=== PATIENT | female | born 1985 | race Caucasian/White ===

== ENCOUNTER 2023-11-24 07:46 | Inpatient (IN) ==
[2023-11-24] MEDS ORDERED: LIDOCAINE 1% LOCAL 20 ML VIAL INFIL PRN (08:08)
[2023-11-24] MEDS: LACTATED RINGER'S 1,000 ML IV PRN (08:23)
[2023-11-24 08:51] LABS: Hemoglobin 12.3 g/dl (12.0-16.0); Mean Corpuscular Hemoglobin 27.5 pg (25.0-34.0); Mean Corpuscular Hgb Conc 33.2 g/dL (32.0-36.0); Mean Corpuscular Volume 82.8 fL (80.0-100.0); Mean Platelet Volume 10.2 fL (9.4-12.4); Platelet Count 265 K/uL (130-400); RDW Standard Deviation 45.1 fL (36.4-46.3); Red Blood Count 4.47 M/uL (4.20-5.40); White Blood Count 7.84 K/ul (4.8-10.8)
[2023-11-24] MEDS: OXYTOCIN 30 UNITS/NSS 30 UNITS/500 ML BAG IV PRN ×2 (09:00→18:13)
--- NOTE | 2023-11-24 09:14 | History & Physical Report ---
Date of Service November 24, 2023 Assessment & Plan (1) Gestational diabetes mellitus (GDM) affecting : Plan: IUP at 40-2/7 weeks now presents for induction of labor because of postterm . We will begin Pitocin induction. Check blood sugars every 3 hours because of the history of GDM. Epidural when requested. Anticipate vaginal . Admission and Anticipated Discharge Date Admission Date: November 24, 2023 History of Present Illness Primary Care Provider: Cari Shell MD Patient is a 38-year-old 2 para 1-0-0-1 female EDC of 11/22/2023 who presents for postterm induction at 40-2/7 weeks. has been complicated by AMA status and diet-controlled GDM. testing has been reassuring. GBS is negative. Allergies Allergy/AdvReac Type Severity Reaction Status Date / Time No Known Allergies Allergy Verified 11/23/23 10:06 Home Medications Medication Instructions Recorded Confirmed Type vit 168-iron 27 mg-folic 1 cap PO 04/06/23 11/23/23 History acid 800 mcg-omega3 235 mg capsule (One-A-Day -1) acetone (urine) test (Ketone Urine #50 ea 07/02/23 11/23/23 Rx Test strips) blood sugar diagnostic (Accu-Chek #150 ea 07/02/23 11/23/23 Rx Kim Plus test strips) blood-glucose meter #1 ea 07/02/23 11/23/23 Rx lancets (Accu-Chek Softclix #150 ea 07/02/23 11/23/23 Rx Lancets) Patient History Medical History Hx of migraines during high school years. no recent migraines and has not needed any medications for this recently History of chicken pox Depression Surgical History S/P tonsillectomy S/P wrist surgery S/P ACL reconstruction S/P wisdom tooth extraction S/P cholecystectomy Family History Father Diabetes Mother Hypertension Diabetes Grandmother (Maternal) Stroke Hypertension Social History Smoking Status: Never smoker Second Hand Exposure: No; Do You Dip or Chew Tobacco: No; Hx Alcohol Use: No Hx Substance Use: No Preferred Language: Luxembourgish Communication Ability: Effective Visual Impairment: No Limitations Hearing Ability: Normal Vapor Coater Required: No Beliefs That Will Affect Care: None marital status: marital status details: Jareth William (40) [phone] Current Living Situation: Spouse and Family Current Living Situation Comment: Jareth and son Prasanth and 2 dogs current occupational status: employed 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 Other Information That Helps Us Care for You: No Feels Safe at Home: Yes Safety Concerns: Feels Safe At This Time Childhood Exposure to Second-Hand Smoke: Yes Diet: regular Dental Care, Regularly: Yes Physical Activity Frequency: 1-2 Times per Week Seatbelt Use: always Sunscreen Use: Yes Assistive Devices: Contacts and Glasses Review of Systems All systems reviewed & are unremarkable except as noted in HPI & below Physical Exam Constitutional: WD/WN, vitals as above Psychiatric: A+Ox3, euthymic affect Genitourinary: OB Exam Abdomen: + vertex, + estimated weight (7-8 pounds) and + irregular contractions Manual OB Exam: + cervical dilation 3 cm, + cervical effacement 70% and + station -2 OB Exam Monitor Tracing: + external FHT monitor used, + external uterine monitor used, + category I and + normal FHT variability Results & Data Vital Signs (Past 12 Hours) Vital Signs Temp Pulse Resp BP 11/24/23 08:26 97.7 F 18 11/24/23 07:57 60 113/65 Coding Level of Care Code None Diagnoses Gestational diabetes mellitus (GDM) affecting O24.419
[2023-11-24] MEDS ORDERED: NALOXONE HCL 0.4 MG/1 ML VIAL/CARP IV PRN (13:10)
[2023-11-24] MEDS ORDERED: diphenhydrAMINE 50 MG/ML VIAL IV PRN (13:10)
[2023-11-24] MEDS ORDERED: NALBUPHINE HCL 5 MG in SYRINGE 0 ML IV PRN (13:10)
[2023-11-24] MEDS ORDERED: ePHEDrine sulfate 50 MG/ML AMP IV PRN (13:10)
[2023-11-24] MEDS ORDERED: BUPIVACAINE 0.25% PF 30 ML VIAL EPI PRN (13:10)
[2023-11-24] MEDS ORDERED: SODIUM CHLORIDE 0.9% PF INJ 10 ML VIAL EPI PRN (13:10)
[2023-11-24] MEDS ORDERED: ROPIVACAINE 0.5% PF 5 MG/ML 20 ML VIAL EPI PRN (13:10)
[2023-11-24] MEDS ORDERED: LIDOCAINE 2% MPF LOCAL 5 ML VIAL EPI PRN (13:10)
[2023-11-24] MEDS ORDERED: NALOXONE HCL 1 MG in SODIUM CHLORIDE 0.9% 1,000 ML IV PRN (13:10)
[2023-11-24] MEDS ORDERED: fentANYL 2 MCG/ML BUPIVacaine 0.125%-NSS 100ML BAG EPI PRN (13:10)
[2023-11-24] MEDS ORDERED: fentaNYL citrate PF 100 MCG/2 ML VIAL EPI PRN (13:10)
--- NOTE | 2023-11-24 13:15 | Anesthesiology Consultation ---
Date of Service November 24, 2023 Assessment & Plan Chart Review Chart Review: Patient NOT seen in Pre Admission Testing and Acceptable Risk for Labor Epidural Consults Requested none ASA ASA2 Proposed Anesthesia Anesthesia Type: Labor Epidural Risk / Benefits Reviewed With: PT / POA / Parent / Guardian, Accepts Plan and Informed Consent Obtained History Height/Weight Height: 5 ft 3 in Weight: 92.079 kg Allergies Allergy/AdvReac Type Severity Reaction Status Date / Time No Known Allergies Allergy Verified 11/23/23 10:06 Medications Home Medications Medication Instructions Recorded Confirmed Last Taken vit 168-iron 27 mg-folic 1 cap PO 04/06/23 11/23/23 11/23/23 08:00 acid 800 mcg-omega3 235 mg capsule (One-A-Day -1) acetone (urine) test (Ketone Urine #50 ea 07/02/23 11/23/23 Unknown Test strips) blood sugar diagnostic (Accu-Chek #150 ea 07/02/23 11/23/23 Unknown Kim Plus test strips) blood-glucose meter #1 ea 07/02/23 11/23/23 Unknown lancets (Accu-Chek Softclix #150 ea 07/02/23 11/23/23 Unknown Lancets) Active Medications Generic Name Dose Route Start Last Admin Trade Name Freq PRN Reason Stop Dose Admin Lactated Ringer's 1,000 mls @ 125 mls/hr 11/24/23 08:08 11/24/23 13:30 Lr IV 11/26/23 08:07 125 mls/hr .Q8H PRN Infusion L&D Protocol Protocol Oxytocin 30 units in 500 mls @ 14 mls/hr 11/24/23 08:32 11/24/23 12:00 Pitocin 30 Units/Nss IV 11/26/23 08:31 0.84 units/hr .Q24H PRN 14 mls/hr Labor Induction/Augmentation Titration Protocol 0.84 UNITS/HR NPO Date Last Intake of Fluids: 11/24/23 Time Last Intake of Fluids: 13:00 Date Last Intake of Solids: 11/24/23 Time Last Intake of Solids: 07:00 Past Medical History Medical History Hx of migraines during high school years. no recent migraines and has not needed any medications for this recently History of chicken pox Depression Exercise / Class Metabolic Activity 1 > 8 Run/Swim/Ski/Tennis Past Family History Family History Father Diabetes Mother Hypertension Diabetes Grandmother (Maternal) Stroke Hypertension Past Surgical History Surgical History S/P tonsillectomy S/P wrist surgery S/P ACL reconstruction S/P wisdom tooth extraction S/P cholecystectomy Past Anesthesia History No Hx of Anesthesia Complications and No Family Hx of Anesthesia Complications History of PONV No Hx of Motion Sickness and History of PONV Social History Smoking Status: Never smoker Do You Dip or Chew Tobacco: No Hx Alcohol Use: No Hx Substance Use: No Review of Systems ROS Unobtainable: All systems reviewed & are unremarkable except as noted in HPI & below Physical Exam Vital Signs Last Vital Signs Temp 36.8 C 11/24/23 11:09 Pulse 59 L 11/24/23 12:33 Resp 18 11/24/23 12:30 BP 123/77 11/24/23 12:33 ENMT Mouth: no TMJ abnormality Thyromental Distance: > or= 3.5 Finger Breadths Mallampati Class: II Neck normal visual inspection and trachea midline; neck extension not limited Respiratory normal respiratory effort Auscultation: lungs clear to auscultation bilaterally Cardiovascular Rate/Rhythm: regular rate and regular rhythm Heart Sounds: no murmur Musculoskeletal Spine: normal cervical ROM Extremities: full ROM of extremities Neurologic moves all extremities Psychiatric Orientation: alert and oriented x 3 Testing Laboratory Results 11/24/23 08:28 Blood Type O Positive 11/24/23 08:28 Antibody Screen NEGATIVE 11/24/23 08:28 11/24/23 11/24/23 11:08 08:01 POC Glucose 89 91
[2023-11-24] MEDS: fentANYL 2 MCG/ML BUPIVacaine 0.125%-NSS 100ML BAG ONE (13:29)
[2023-11-24] MEDS: LIDOCAINE 2%/EPINEPHRINE 1:200,000 20 ML PF ONE (13:30)
[2023-11-24] MEDS: BUPIVACAINE 0.25% PF 30 ML VIAL ONE (13:30)
[2023-11-24] MEDS: fentaNYL citrate PF 100 MCG/2 ML VIAL ONE (13:30)
[2023-11-24] MEDS: BUPIVACAINE 0.25% PF 30 ML VIAL EPI STA (13:37)
[2023-11-24] MEDS: SODIUM CHLORIDE 0.9% PF INJ 10 ML VIAL ONE (13:37)
[2023-11-24] MEDS: fentaNYL citrate PF 100 MCG/2 ML VIAL EPI STA (13:37)
[2023-11-24] MEDS: LIDOCAINE 2%/EPINEPHRINE 1:200,000 20 ML PF EPI STA (13:37)
[2023-11-24] MEDS: ONDANSETRON INJ 2 MG/ML 2 ML VIAL IV STA (15:44)
[2023-11-24] MEDS ORDERED: ACETAMINOPHEN 325 MG TAB PO PRN (18:36)
[2023-11-24] MEDS ORDERED: oxyCODONE/ACETAMINOPHEN 5mg/325mg TAB PO PRN (18:36)
[2023-11-24] MEDS ORDERED: bisacodyL 10 MG SUPP PR PRN (18:36)
[2023-11-24] MEDS ORDERED: OXYTOCIN 30 UNITS/NSS 30 UNITS/500 ML BAG IV PRN (18:36)
[2023-11-24] MEDS ORDERED: HYDROCORTISONE ACETATE 25 MG SUPP PR PRN (18:36)
--- NOTE | 2023-11-24 18:40 | Delivery Summary ---
Vaginal Delivery Summary Date of Service November 24, 2023 Vaginal Delivery Summary and 2nd Degree LAC Patient is a 38-year-old 2 para 1-0-0-1 female who presents for postterm induction at 40-2/7 weeks. Pitocin induction of labor was begun per protocol. She requested epidural analgesia. Membranes were ruptured for clear fluid. She progressed to full dilation with the urge to push. She pushed effectively over intact perineum for delivery of a viable female infant. There was a loose nuchal cord which reduced as the rest the infant delivered. She was placed on the mother's abdomen for further attention and drying. After stimulation she was then vigorous crying and moving all 4 limbs. Cord was clamped and cut 1 minute after delivery. After cord bloods obtained, the placenta was expressed intact with a three-vessel cord. A second-degree perineal laceration was repaired with 3-0 chromic in the usual fashion. bleeding was controlled with dilute Pitocin and fundal massage. QBL was 474 cc. Mother and were doing well after delivery. [facility] [place] Charge Delivery Type Details: and 2nd Degree LAC
[2023-11-24] MEDS: SODIUM CHLORIDE 0.9% PF INJ 10 ML VIAL EPI STA (19:02)
[2023-11-24] MEDS: ePHEDrine sulfate 50 MG/ML AMP ONE (19:02)
[2023-11-24] MEDS: DIPHTHER/TETAN/PERTUS Vaccine (Tdap, Adol/Adult) 0.5mL IM ONE (20:06)
[2023-11-24] MEDS: BENZOCAINE 20% SPRY 85 APPLN/85 GM CAN EXT PRN (20:08)
[2023-11-24] MEDS: DOCUSATE SODIUM 100 MG CAP PO SCH (21:47)
[2023-11-25] MEDS: IBUPROFEN 600 MG TAB PO PRN (00:07)
--- NOTE | 2023-11-25 06:33 | Obstetrical Progress Note ---
Date of Service <Javier Bill MD - Last Filed: 11/25/23 08:04> November 25, 2023 Assessment & Plan <Javier Bill MD - Last Filed: 11/25/23 08:04> (1) Normal vaginal delivery of second : Plan 38 yo , status post w/ 2nd degree laceration, day 1 from 11/24/23. - Pt doing well clinically. Feels well today. Eating well, voiding well, ambulating well. Pain well controlled with PRN pain meds. - Routine care -- OOB, ambulation, diet progression as tolerated Vital Signs reviewed and WNL. (Tmax at 36.9) Hemoglobin Reviewed. 12.3 (11/24/23) 10.2 (today). Blood Type: O+, GBS-, Rubella Immune. Encourage ambulation, monitor and control pain with Motrin PRN, resume regular diet, monitor lochia. Breast feeding encouraged. After discharge will have 6 week follow-up with Dr. Rainey. Pt counselled on discharge instructions, in the event she chooses to go home that day. <Elyssa Begum MD, FACOG - Last Filed: 11/25/23 08:12> (1) Normal vaginal delivery of second : Subjective <Javier Bill MD - Last Filed: 11/25/23 08:04> Ambulation: ambulating normally Voiding: no voiding problems Passing Gas:: Yes Diet Tolerance:: regular diet Lochia:: Moderate Feeding Type:: breast feeding Current Pain Level(1-10): 2 (pelvic area laceration) Constitutional: no fever, no chills, no body aches or no fatigue Eyes: no diplopia, no seeing flashes or no worsening vision Respiratory: no cough, no chest congestion or no dyspnea Cardiovascular: no chest pain, no palpitations or no calf pain Gastrointestinal: no abdominal pain, no nausea, no vomiting, no constipation or no diarrhea/loose stools Genitourinary (female): no dysuria or no difficulty urinating Neurologic: no tingling, no numbness or no headache(s) Physical Exam <Javier Bill MD - Last Filed: 11/25/23 08:04> Constitutional WD/WN, vitals as above Respiratory normal respiratory effort, lungs clear to auscultation Cardiovascular RRR, no murmur, no edema Extremities: normal capillary refill; no calf tenderness Gastrointestinal (Abdomen) normal bowel sounds, soft, nontender, no hepatosplenomegaly Inspection/Auscultation: + significant pannus Psychiatric A+Ox3, euthymic affect <Elyssa Begum MD, FACOG - Last Filed: 11/25/23 08:12> Genitourinary OB Exam Abdomen: + fundal height Fundus: + firm and + relation to umbilicus (at U); not tender Results & Data <Javier Bill MD - Last Filed: 11/25/23 08:04> Vital Signs (Past 12 Hours) Vital Signs Temp Pulse Pulse Resp BP BP Pulse Ox 11/25/23 04:20 36.5 C 63 18 129/81 11/24/23 23:45 36.7 C 62 16 107/67 11/24/23 20:30 36.9 C 65 20 137/85 97 11/24/23 20:20 36.9 C 18 11/24/23 20:05 71 124/58 L 11/24/23 19:50 16 11/24/23 19:50 62 128/88 11/24/23 19:35 67 121/78 11/24/23 19:20 16 11/24/23 19:20 72 139/82 11/24/23 19:05 36.9 C 18 11/24/23 19:05 60 129/70 11/24/23 18:52 69 145/88 H 11/24/23 18:50 69 18 145/88 H 11/24/23 18:35 74 16 135/79 11/24/23 18:35 74 135/79 O2 Del Method 11/25/23 04:20 Room Air 11/24/23 23:45 Room Air 11/24/23 20:30 Room Air 11/24/23 20:20 11/24/23 20:05 11/24/23 19:50 11/24/23 19:50 11/24/23 19:35 11/24/23 19:20 11/24/23 19:20 11/24/23 19:05 11/24/23 19:05 11/24/23 18:52 11/24/23 18:50 11/24/23 18:35 11/24/23 18:35 Supervising Physician <Elyssa Begum MD, FACOG - Last Filed: 11/25/23 08:12> Co-Signing Physician Notes Resident Physician Supervision Note: I was present with Dr. Bill during the history and exam. I discussed the case with the resident and agree with the findings and plan as documented in the note. Any exceptions or clarifications are listed here: [None] Documented By: Elyssa Begum MD, FACOG
[2023-11-25 07:39] LABS: Hematocrit (blood only) 30.1 % (37.0-47.0); Hemoglobin 10.2 g/dl (12.0-16.0); Mean Corpuscular Hemoglobin 27.9 pg (25.0-34.0); Mean Corpuscular Hgb Conc 33.9 g/dL (32.0-36.0); Mean Corpuscular Volume 82.2 fL (80.0-100.0); Mean Platelet Volume 10.1 fL (9.4-12.4); Platelet Count 230 K/uL (130-400); RDW Coefficient of Variation 15.3 % (11.5-14.5); RDW Standard Deviation 45.1 fL (36.4-46.3); Red Blood Count 3.66 M/uL (4.20-5.40)
[2023-11-25] MEDS: PRENATAL VITAMIN 1 TAB PO SCH (08:11)
[2023-11-25] MEDS ORDERED: bisacodyL 5 MG TABEC PO SCH (20:00)
== END 2023-11-25 19:45 | disposition home or self-care (01) | DRG 807 ==
LOC: 4S1 07:46 → 4E2 20:30